=== PATIENT | female | born 1950 | race Caucasian/White ===

== ENCOUNTER 2020-05-08 09:04 | Inpatient (IN) | payer MEDICAID, OTHER ==
[~2020-05-08] VITALS: Ht 154.9 cm; Wt 70.0 kg
[2020-05-08] MEDS ORDERED: aspirin 81mg tab.chew PO ONE (09:10)
[2020-05-08 09:28] LABS: BASOPHILS % (AUTO) 0.2 % (0-1); EOSINOPHILS # (AUTO) 0.1 X10'3 (0-0.9); EOSINOPHILS % (AUTO) 0.5 % (0-6); HEMATOCRIT 48.8 % (35.0-45.0); HEMOGLOBIN 16.8 g/dl (12.0-16.0); LYMPHOCYTES # (AUTO) 2.4 X10'3 (1.1-4.8); LYMPHOCYTES % (AUTO) 22.8 % (21-51); MEAN CORPUSCULAR HEMOGLOBIN 29.8 PG (27.0-31.0); MEAN CORPUSCULAR HGB CONC 34.3 g/dL (33.0-36.5); MEAN CORPUSCULAR VOLUME 86.6 FL (78-98); MONOCYTES # (AUTO) 0.9 X10'3 (0-0.9); MONOCYTES % (AUTO) 8.4 % (2-12); NEUTROPHILS # (AUTO) 7.1 X10'3 (1.8-7.7); NEUTROPHILS % (AUTO) 68.1 % (42-75); PLATELET COUNT 294 X10'3 (140-440); RED BLOOD COUNT 5.63 X10'6 (4.20-5.60); RED CELL DISTRIBUTION WIDTH 14.6 % (11.5-14.5); WHITE BLOOD COUNT 10.4 X10'3 (4.5-11.0)
[2020-05-08 09:38] LABS: PARTIAL THROMBOPLASTIN TIME 26 SECONDS (22-32)
[2020-05-08 09:47] LABS: ALANINE AMINOTRANSFERASE 23 U/L (12-78); ALBUMIN 3.7 G/DL (3.4-5.0); ALBUMIN/GLOBULIN RATIO 0.9 (1.1-1.5); ALKALINE PHOSPHATASE 71 IU/L (46-116); ANION GAP 9 (8-16); ASPARTATE AMINO TRANSFERASE 21 U/L (10-37); BILIRUBIN,TOTAL 0.9 MG/DL (0.1-1.0); BLOOD UREA NITROGEN 43 MG/DL (7-18); BUN/CREATININE RATIO 35.5 (6.6-38.0); CALCIUM 8.7 MG/DL (8.5-10.1); CHLORIDE 90 MMOL/L (99-107); CREATININE 1.21 MG/DL (0.40-0.90); GLUCOSE 135 MG/DL (70-104); MAGNESIUM 2.6 MG/DL (1.5-2.4); SODIUM 130 MMOL/L (135-145); TOTAL CARBON DIOXIDE 31.5 MMOL/L (24-32); TOTAL PROTEIN 7.8 G/DL (6.4-8.2); eGFR 44 ML/MIN
[2020-05-08 09:50] LABS: POTASSIUM 2.6 MMOL/L (3.5-5.1)
--- NOTE | 2020-05-08 09:50 | NUR ---
Pt with pt's relative, Ivy Whitney. She states that the pt has been vomiting for 4 days and this morning started complaining of chest pain. Pt not able to tell her when the chest pain started. Ivy states that the pt has not been to a doctor since the 1960s.
[2020-05-08] MEDS ORDERED: potassium Cl 20 mEq SR tablet PO ONE (09:55)
[2020-05-08] MEDS ORDERED: ondansetron/PF 4mg/2ml inj IV ONE (09:55)
[2020-05-08] MEDS: potassium Cl 10 mEq/100mL bag IV SCH ×2 (10:19→11:32)
--- NOTE | 2020-05-08 10:19 | NUR ---
Pt wants to wait on oral potassium until her nausea is a little better.
[2020-05-08] MEDS ORDERED: normal saline 1000ML IV soln IVB ONE (10:30)
[2020-05-08] MEDS ORDERED: POTASSIUM BICARB 20meq eff tab 20 MEQ TABLET.EFF PO ONE (10:40)
[2020-05-08 11:28] LABS: CLARITY,URINE SLIGHTLY CLOUDY (Clear); COLOR,URINE YELLOW (Yellow); GLUCOSE, URINE NEGATIVE (Neg); KETONES,URINE 15 mg/dl (Neg); LEUKOCYTE ESTERASE ,URINE NEGATIVE (Neg); NITRITES, URINE NEGATIVE (Neg); OCCULT BLOOD,URINE MODERATE (Neg); PH,URINE 6.5 (4.8-8.0); PROTEIN,URINE NEGATIVE (Neg)
[2020-05-08 11:29] LABS: UA COLLECTION TYPE OTHER
[2020-05-08 11:35] LABS: BACTERIA,URINE 1+ /HPF (Neg); MUCUS STRANDS NONE SEEN /LPF (Neg); RENAL CELLS, URINE FEW /HPF; SQUAMOUS EPITHELIAL CELL,UR FEW /LPF (FEW); WBC,URINE 0-4 /HPF (0-4)
[2020-05-08 11:43] LABS: URINE AMPHETAMINE SCREEN NEGATIVE (Neg); URINE BARBITUATE SCREEN NEGATIVE (Neg); URINE BENZODIAZEPINES SCREEN NEGATIVE (Neg); URINE CANNABINOID SCREEN POSITIVE (Neg); URINE COCAINE SCREEN NEGATIVE (Neg); URINE METHADONE SCREEN NEGATIVE (Neg); URINE OPIATE SCREEN NEGATIVE (Neg); URINE PHENCYCLIDINE SCREEN NEGATIVE (Neg)
[2020-05-08] MEDS ORDERED: NO HOME MEDS (12:36)
--- NOTE | 2020-05-08 14:01 | NUR ---
Patient just arrived from ER, alert and oriented x 3. Patient oriented to the unit, instructed her to use call light if she need to go to the bathroom as she was little wobbly after I assisted her to the bathroom. Patient verbalized understanding of instruction made.
[2020-05-08 14:13] VITALS: BP 123/86
--- NOTE | 2020-05-08 14:16 | NUR ---
Paged Dr. Stark regarding K of 2.6 that so far patient received KCL 10 mEQ IV x 2 doses and KCL 40 mEQ PO x 1 dose at Emergency department. I asked him via page if he wants this patient to be on replacement protocol
--- NOTE | 2020-05-08 14:32 | NUR ---
Patient has valuables sent to safe
[2020-05-08] MEDS ORDERED: magnesium 4gm in 100ml NS 100 ML IV PRN (15:50)
[2020-05-08] MEDS ORDERED: potassium CL 10mEq/100ml bag 100 ML IV PRN (15:50)
[2020-05-08] MEDS ORDERED: potassium Cl 20 mEq SR tablet PO PRN (15:50)
[2020-05-08] MEDS ORDERED: magnesium Cl slow-release 64mg tablet PO PRN (15:50)
[2020-05-08 17:10] LABS: POTASSIUM 2.8 MMOL/L (3.5-5.1)
--- NOTE | 2020-05-08 17:11 | NUR ---
Received a phone call from the lab that repeat K is 2.8, will replace per protocol. Dr. Stark notified via paging system
[2020-05-08] MEDS ORDERED: HYDROcodone/acetaminophen 10/325mg tab PO PRN (17:15)
[2020-05-08] MEDS ORDERED: ondansetron/PF 4mg/2ml inj IV PRN (17:15)
[2020-05-08] MEDS ORDERED: diphenhydrAMINE 25mg capsule PO PRN (17:15)
[2020-05-08] MEDS ORDERED: bisacodyl 10mg suppository rectal RC PRN (17:15)
[2020-05-08] MEDS ORDERED: pantoprazole 40 MG vial IV ONE (17:15)
[2020-05-08] MEDS ORDERED: magnesium hydroxide 30ml (MOM) UD suspension PO PRN (17:15)
[2020-05-08] MEDS ORDERED: morphine 2 MG/ML inj. syringe IV PRN ×2 (17:15)
[2020-05-08] MEDS ORDERED: diphenhydrAMINE 50 mg/ml inj IV PRN (17:15)
[2020-05-08] MEDS ORDERED: acetaminophen 650mg rectal suppository RC PRN (17:15)
[2020-05-08] MEDS ORDERED: metoclopramide 5 mg/ml inj IV PRN (17:15)
[2020-05-08] MEDS ORDERED: acetaminophen 325mg tablet PO PRN ×2 (17:15)
[2020-05-08] MEDS ORDERED: HYDROcodone/acetaminophen 5mg/325mg tablet PO PRN (17:15)
[2020-05-08] MEDS ORDERED: mag hydrox/Alum hydrox/simeth 30ml oral suspension PO PRN (17:15)
[2020-05-08] MEDS: potassium Cl 20 mEq SR tablet PO PRN ×2 (17:17→22:59)
[2020-05-08] MEDS: normal saline 1000ml 1,000 ML IV SCH (17:37)
[2020-05-08 18:00] VITALS: BP 103/80
--- NOTE | 2020-05-08 18:53 | NUR ---
Problems reprioritized. Patient report given, questions answered & plan of care reviewed with Prudence RN.
[2020-05-08 19:45] LABS: HEMOGLOBIN A1C 5.8 % (4.5-6.2)
[2020-05-08 20:00] VITALS: BP_SYST 103; BP_SYST 124; BP_SYST 133; BP_DIAS 74; BP_DIAS 80; BP_DIAS 81
[2020-05-08] MEDS: heparin, porcine 5000 units/ml vial SQ SCH (20:02)
[2020-05-09] VITALS: BP 138/75
[2020-05-09] MEDS: potassium Cl 20 mEq SR tablet PO PRN (04:21)
[2020-05-09] MEDS: normal saline 1000ml 1,000 ML IV SCH ×3 (04:27→23:00)
[2020-05-09 05:17] LABS: BASOPHILS % (AUTO) 0.1 % (0-1); EOSINOPHILS # (AUTO) 0.2 X10'3 (0-0.9); EOSINOPHILS % (AUTO) 1.8 % (0-6); HEMATOCRIT 43.5 % (35.0-45.0); HEMOGLOBIN 14.7 g/dl (12.0-16.0); LYMPHOCYTES % (AUTO) 33.9 % (21-51); MEAN CORPUSCULAR HEMOGLOBIN 29.7 PG (27.0-31.0); MEAN CORPUSCULAR HGB CONC 33.8 g/dL (33.0-36.5); MONOCYTES # (AUTO) 0.7 X10'3 (0-0.9); MONOCYTES % (AUTO) 7.6 % (2-12); NEUTROPHILS % (AUTO) 56.6 % (42-75); PLATELET COUNT 230 X10'3 (140-440); RED BLOOD COUNT 4.94 X10'6 (4.20-5.60); RED CELL DISTRIBUTION WIDTH 14.6 % (11.5-14.5); WHITE BLOOD COUNT 8.8 X10'3 (4.5-11.0)
[2020-05-09 05:33] LABS: ALANINE AMINOTRANSFERASE 23 U/L (12-78); ALBUMIN 3.1 G/DL (3.4-5.0); ALBUMIN/GLOBULIN RATIO 0.9 (1.1-1.5); ALKALINE PHOSPHATASE 59 IU/L (46-116); ANION GAP 8 (8-16); ASPARTATE AMINO TRANSFERASE 23 U/L (10-37); BILIRUBIN,TOTAL 0.6 MG/DL (0.1-1.0); BLOOD UREA NITROGEN 26 MG/DL (7-18); CALCIUM 7.7 MG/DL (8.5-10.1); CHLORIDE 100 MMOL/L (99-107); CHOL/HDL RATIO 3.7 (0.00-4.99); CHOLESTEROL 154 MG/DL (0-200); CREATININE 0.93 MG/DL (0.40-0.90); GLUCOSE 97 MG/DL (70-104); HDL CHOLESTEROL 42 MG/DL (35-60); LDL CHOLESTEROL 90 MG/DL (50-100); MAGNESIUM 2.4 MG/DL (1.5-2.4); PHOSPHORUS 2.3 MG/DL (2.3-4.5); POTASSIUM 3.6 MMOL/L (3.5-5.1); SODIUM 136 MMOL/L (135-145); TOTAL CARBON DIOXIDE 28.5 MMOL/L (24-32); TOTAL PROTEIN 6.5 G/DL (6.4-8.2); TRIGLYCERIDES 114 MG/DL (20-135); eGFR 59 ML/MIN
--- NOTE | 2020-05-09 05:59 | NUR ---
Problems reprioritized. Patient report given, questions answered & plan of care reviewed with Heidi BURTON.
--- NOTE | 2020-05-09 06:05 | NUR ---
Patient in room [facility]. I have received report from Danisha BURTON and had the opportunity to ask questions and assume patient care.
[2020-05-09 07:00] VITALS: BP 101/58
[2020-05-09 08:00] VITALS: BP 156/85
[2020-05-09] MEDS: pantoprazole 40 MG vial IV SCH (08:27)
[2020-05-09] MEDS: heparin, porcine 5000 units/ml vial SQ SCH ×2 (08:28→20:08)
[2020-05-09] MEDS ORDERED: metoprolol tartrate 1mg/ml inj IV PRN (10:20)
[2020-05-09] MEDS ORDERED: aminophylline 250mg/10ml inj. IV PRN (10:20)
[2020-05-09] MEDS ORDERED: nitroGLYCERIN 0.4mg SUBLingual tab SL PRN (10:20)
[2020-05-09] MEDS ORDERED: regadenoson 0.4mg/5ml syringe IV PRN (10:20)
--- NOTE | 2020-05-09 10:48 | NUR ---
Patient already ate breakfast around 08:30am and had 2 sips of coffee with creamer. Nuclear Med department notified about this, the staff said we cannot done it today but tomorrow am instead. Instructed patient about NPO after midnight, no caffeine to prepare for Lexiscan stress test
[2020-05-09 18:00] VITALS: BP 162/88
--- NOTE | 2020-05-09 18:39 | NUR ---
Problems reprioritized. Patient report given, questions answered & plan of care reviewed with Prudence RN.
--- NOTE | 2020-05-09 19:00 | NUR ---
Patient in room [facility]. I have received report from TRACEE BURTON and had the opportunity to ask questions and assume patient care.
[2020-05-09 20:00] VITALS: BP 162/88
--- NOTE | 2020-05-09 21:53 | NUR ---
PATIENT REFUSED ORTHOSTATICS FOR STANDING Addendum: 05/09/20 at 2155 by Danisha Hartman RN Amended: Links added.
[2020-05-10] VITALS (12 sets, daily range): BP systolic 74–196; BP diastolic 78–121
[2020-05-10 05:23] LABS: BASOPHILS % (AUTO) 0.1 % (0-1); EOSINOPHILS # (AUTO) 0.2 X10'3 (0-0.9); EOSINOPHILS % (AUTO) 2.3 % (0-6); HEMATOCRIT 41.5 % (35.0-45.0); LYMPHOCYTES # (AUTO) 2.5 X10'3 (1.1-4.8); LYMPHOCYTES % (AUTO) 35.6 % (21-51); MEAN CORPUSCULAR HEMOGLOBIN 29.6 PG (27.0-31.0); MEAN CORPUSCULAR HGB CONC 33.7 g/dL (33.0-36.5); MEAN CORPUSCULAR VOLUME 87.9 FL (78-98); MONOCYTES # (AUTO) 0.5 X10'3 (0-0.9); MONOCYTES % (AUTO) 7.9 % (2-12); NEUTROPHILS # (AUTO) 3.7 X10'3 (1.8-7.7); NEUTROPHILS % (AUTO) 54.1 % (42-75); PLATELET COUNT 245 X10'3 (140-440); RED BLOOD COUNT 4.73 X10'6 (4.20-5.60); RED CELL DISTRIBUTION WIDTH 15.1 % (11.5-14.5); WHITE BLOOD COUNT 6.9 X10'3 (4.5-11.0)
[2020-05-10 05:40] LABS: ALANINE AMINOTRANSFERASE 26 U/L (12-78); ALBUMIN/GLOBULIN RATIO 0.9 (1.1-1.5); ALKALINE PHOSPHATASE 56 IU/L (46-116); ANION GAP 7 (8-16); ASPARTATE AMINO TRANSFERASE 21 U/L (10-37); BILIRUBIN,TOTAL 0.4 MG/DL (0.1-1.0); BLOOD UREA NITROGEN 15 MG/DL (7-18); BUN/CREATININE RATIO 19.2 (6.6-38.0); CALCIUM 7.7 MG/DL (8.5-10.1); CHLORIDE 102 MMOL/L (99-107); CREATININE 0.78 MG/DL (0.40-0.90); GLUCOSE 95 MG/DL (70-104); POTASSIUM 3.6 MMOL/L (3.5-5.1); SODIUM 136 MMOL/L (135-145); TOTAL CARBON DIOXIDE 27.1 MMOL/L (24-32); TOTAL PROTEIN 6.4 G/DL (6.4-8.2); eGFR 73 ML/MIN
--- NOTE | 2020-05-10 06:30 | NUR ---
Patient in room [facility]. I have received report from Danisha BURTON and had the opportunity to ask questions and assume patient care.
[2020-05-10] MEDS: pantoprazole 40 MG vial IV SCH (07:38)
[2020-05-10] MEDS: heparin, porcine 5000 units/ml vial SQ SCH (07:38)
[2020-05-10] MEDS ORDERED: amLODIPine 5mg tablet PO SCH (12:55)
[2020-05-10] MEDS ORDERED: PANT40TA4 PO (13:33)
[2020-05-10] MEDS ORDERED: NOR5T PO (13:33)
--- NOTE | 2020-05-10 16:10 | NUR ---
PATIENT DISCHARGED INTO THE CARE OF FAMILY. PATIENT EXPRESSED VERBAL UNDERSTANDING OF DISCHARGE TEACHING AND MEDICATION TEACHING. PATIENT IS STATED SHE HAD ALL OF HER BELONGINGS AT THE TIME OF DISCHARGE. IV TAKEN OUT AT THE TIME OF DISCHARGE, CANULA WAS WHOLE AND INTACT UPON DISCHARGE. PATIENT LEFT IN PRIVATE VEHICLE AND IS LOOKING FOR PCP AT THIS TIME.
== END 2020-05-10 16:17 | disposition home or self-care (01) | DRG 241 ==
LOC: ER 09:05 → UNDOADMIN 11:43 → ED HOLD 11:43 → SUR 3N 14:04 → ED HOLD 17:12
PROVIDERS: ADMIT Family Medicine; ATTEND Family Medicine
PROC: 4A02XM4 Measurement of Cardiac Total Activity, External Approach (ICD-10-PCS; principal; 2020-05-10)
PROC: 3E073KZ Introduction of Other Diagnostic Substance into Coronary Artery, Percutaneous Approach (ICD-10-PCS; 2020-05-10)
DX: K29.20 Alcoholic gastritis without bleeding (principal); R11.15 Cyclical vomiting syndrome unrelated to migraine; N17.9 Acute kidney failure, unspecified; E86.0 Dehydration; E86.1 Hypovolemia; E87.1 Hypo-osmolality and hyponatremia; E87.6 Hypokalemia; F10.10 Alcohol abuse, uncomplicated; F12.10 Cannabis abuse, uncomplicated; G93.41 Metabolic encephalopathy; I10 Essential (primary) hypertension; K21.9 Gastro-esophageal reflux disease without esophagitis; Z82.0 Family history of epilepsy and other diseases of the nervous system; Z82.3 Family history of stroke; Z71.51 Drug abuse counseling and surveillance of drug abuser; Y92.89 Other specified places as the place of occurrence of the external cause
CPT/HCPCS: 36415; 70450; 71045; 78452; 80053; 80061; 80305; 81001; 83036; 83735; 83880; 84100; 84132; 84484; 85025; 85610; 85730; 87081; 93005; 93017; 93306; 97110; 97116; 97161; 97530; 99285; A9500; C9113; G0378; J1644; J2405; J2785; J3480; J7030

== ENCOUNTER 2020-08-08 13:52 | Emergency (ER) | payer MEDICAID, OTHER ==
[~2020-08-08] VITALS: Ht 154.9 cm; Wt 73.2 kg
[~2020-08-08 13:52] MED LIST: NOR5T PO; PANT40TA54 PO
[2020-08-08] MEDS ORDERED: ondansetron 4mg rapidly disintigrating tab PO ONE (14:15)
--- NOTE | 2020-08-08 14:18 | NUR ---
Spoke to Dr Edwin koch about patient's condition/vital signs. He ordered Zofran so hopefully she will be able to keep something down. No rooms available at this time. RN advised ARCHANA Robbins of situation. Patient sitting in lobby.
[2020-08-08 15:38] LABS: BASOPHILS # (AUTO) 0.1 X10'3 (0-0.2); BASOPHILS % (AUTO) 0.3 % (0-1); EOSINOPHILS % (AUTO) 0 % (0-6); HEMATOCRIT 46.2 % (35.0-45.0); LYMPHOCYTES # (AUTO) 1.8 X10'3 (1.1-4.8); LYMPHOCYTES % (AUTO) 8.8 % (21-51); MEAN CORPUSCULAR HEMOGLOBIN 30.2 PG (27.0-31.0); MEAN CORPUSCULAR HGB CONC 34.6 g/dL (33.0-36.5); MEAN CORPUSCULAR VOLUME 87.3 FL (78-98); MEAN PLATELET VOLUME 7.5 FL (7.4-10.4); MONOCYTES % (AUTO) 5.2 % (2-12); NEUTROPHILS # (AUTO) 17.2 X10'3 (1.8-7.7); NEUTROPHILS % (AUTO) 85.7 % (42-75); PLATELET COUNT 331 X10'3 (140-440); RED CELL DISTRIBUTION WIDTH 15.2 % (11.5-14.5); WHITE BLOOD COUNT 20.1 X10'3 (4.5-11.0)
[2020-08-08] MEDS ORDERED: normal saline 1000ML IV soln IVB ONE ×3 (15:45→18:35)
[2020-08-08] MEDS ORDERED: ondansetron/PF 4mg/2ml inj IV ONE (15:45)
[2020-08-08 15:52] LABS: ALANINE AMINOTRANSFERASE 25 U/L (12-78); ALBUMIN 4.6 G/DL (3.4-5.0); ALKALINE PHOSPHATASE 93 IU/L (46-116); ANION GAP 12 (8-16); ASPARTATE AMINO TRANSFERASE 21 U/L (10-37); BILIRUBIN,TOTAL 0.6 MG/DL (0.1-1.0); BLOOD UREA NITROGEN 49 MG/DL (7-18); BUN/CREATININE RATIO 27.1 (6.6-38.0); CHLORIDE 98 MMOL/L (99-107); CREATININE 1.81 MG/DL (0.40-0.90); GLUCOSE 168 MG/DL (70-104); LIPASE < 50 U/L (73-393); POTASSIUM 3.2 MMOL/L (3.5-5.1); SODIUM 139 MMOL/L (135-145); TOTAL CARBON DIOXIDE 28.7 MMOL/L (24-32); TOTAL PROTEIN 9.3 G/DL (6.4-8.2); eGFR 27 ML/MIN
--- NOTE | 2020-08-08 16:00 | NUR ---
discussed pt's bp w/ pa good; new order for hydralazine received.
[2020-08-08] MEDS ORDERED: hydrALAZINE 20mg/ml inj. IV ONE (16:05)
[2020-08-08 16:13] LABS: MAGNESIUM 2.4 MG/DL (1.5-2.4)
[2020-08-08 16:33] LABS: CLARITY,URINE SLIGHTLY CLOUDY (Clear); COLOR,URINE YELLOW (Yellow); GLUCOSE, URINE NEGATIVE (Neg); KETONES,URINE NEGATIVE (Neg); LEUKOCYTE ESTERASE ,URINE NEGATIVE (Neg); NITRITES, URINE NEGATIVE (Neg); OCCULT BLOOD,URINE MODERATE (Neg); PH,URINE 5.5 (4.8-8.0); PROTEIN,URINE 100 mg/dl (Neg); UROBILINOGEN,URINE 0.2 E.U/dL (0.2-1.0)
[2020-08-08 16:49] LABS: BACTERIA,URINE FEW /HPF (Neg); MUCUS STRANDS FEW /LPF (Neg); RBC,URINE 0-2 /HPF (0-2); SQUAMOUS EPITHELIAL CELL,UR NONE SEEN /LPF (FEW); UA COLLECTION TYPE STRAIGHT CATH; WBC,URINE 0-4 /HPF (0-4)
[2020-08-08 16:50] LABS: AMORPHOUS URATES 2+; COARSE GRANULAR CAST 0-3 /LPF (NEGATIVE)
[2020-08-08] MEDS ORDERED: mag hydrox/Alum hydrox/simeth 30ml oral suspension PO ONE (17:00)
[2020-08-08] MEDS ORDERED: proCHLORperazine 10 MG/2 ml inj IM ONE (17:00)
[2020-08-08] MEDS ORDERED: magnesium citrate 296ml oral solution PO ONE (17:00)
[2020-08-08] MEDS ORDERED: LIDOcaine Viscous 15ml cup MM ONE (17:00)
[2020-08-08 18:41] LABS: URINE AMPHETAMINE SCREEN NEGATIVE (Neg); URINE BARBITUATE SCREEN NEGATIVE (Neg); URINE BENZODIAZEPINES SCREEN NEGATIVE (Neg); URINE CANNABINOID SCREEN POSITIVE (Neg); URINE COCAINE SCREEN NEGATIVE (Neg); URINE METHADONE SCREEN NEGATIVE (Neg); URINE OPIATE SCREEN NEGATIVE (Neg); URINE PHENCYCLIDINE SCREEN NEGATIVE (Neg)
[2020-08-08] MEDS ORDERED: acetaminophen 325mg tablet PO ONE (19:35)
[2020-08-08] MEDS ORDERED: ONDA4TAB6 PO (20:20)
[2020-08-08 21:01] VITALS: BP 190/103
== END 2020-08-08 21:03 | disposition home or self-care (01) ==
LOC: ER 13:53
DX: K29.00 Acute gastritis without bleeding (principal); I10 Essential (primary) hypertension; F12.10 Cannabis abuse, uncomplicated; Z79.899 Other long term (current) drug therapy
CPT/HCPCS: 36415; 74022; 80053; 80305; 81001; 83605; 83690; 83735; 84145; 84484; 85025; 93005; 96361; 96372; 96374; 96375; 99285; J0360; J0780; J2405; J7030

== ENCOUNTER 2021-04-15 09:02 | Day surgery (SDC) | payer SELFPAY ==
[2021-04-09 14:23] LABS: BASOPHILS % (AUTO) 0.3 % (0-1); EOSINOPHILS # (AUTO) 0.1 X10'3 (0-0.9); EOSINOPHILS % (AUTO) 0.8 % (0-6); LYMPHOCYTES # (AUTO) 1.9 X10'3 (1.1-4.8); LYMPHOCYTES % (AUTO) 22.9 % (21-51); MEAN CORPUSCULAR HEMOGLOBIN 29.1 PG (27.0-31.0); MEAN CORPUSCULAR HGB CONC 34.5 g/dL (33.0-36.5); MEAN CORPUSCULAR VOLUME 84.4 FL (78-98); MONOCYTES # (AUTO) 0.7 X10'3 (0-0.9); MONOCYTES % (AUTO) 7.9 % (2-12); NEUTROPHILS # (AUTO) 5.7 X10'3 (1.8-7.7); NEUTROPHILS % (AUTO) 68.1 % (42-75); PRE OP HEMATOCRIT 31.1 % (35.0-45.0); PRE OP PLATELET COUNT 280 X10'3 (140-440); RED BLOOD COUNT 3.69 X10'6 (4.20-5.60); RED CELL DISTRIBUTION WIDTH 15.1 % (11.5-14.5)
[2021-04-09 14:27] LABS: PRE OP HEMOGLOBIN 10.7 g/dL (12.0-16.0)
[2021-04-09 14:38] LABS: ALBUMIN 3.6 G/DL (3.4-5.0); ALBUMIN/GLOBULIN RATIO 0.8 (1.1-1.5); ALKALINE PHOSPHATASE 67 IU/L (46-116); BLOOD UREA NITROGEN 26 MG/DL (7-18); BUN/CREATININE RATIO 15.3 (6.6-38.0); CALCIUM 8.7 MG/DL (8.5-10.1); CHLORIDE 102 MMOL/L (99-107); PRE OP ALT 16 U/L (30-65); PRE OP ANION GAP 13 (8-16); PRE OP AST 17 U/L (10-37); PRE OP BILIRUB, TOTAL 0.4 MG/DL (0.0-1.0); PRE OP GLUCOSE 105 MG/DL (70-104); PRE OP POTASSIUM 3.5 MMOL/L (3.4-5.1); PRE OP SODIUM 141 MMOL/L (135-145); TOTAL CARBON DIOXIDE 25.9 MMOL/L (24-32); TOTAL PROTEIN 8.1 G/DL (6.4-8.2); eGFR 29 ML/MIN
[~2021-04-15] VITALS: Ht 154.9 cm; Wt 60.6 kg
[2021-04-15] VITALS (7 sets, daily range): BP systolic 136–180; BP diastolic 79–100
[~2021-04-15 09:02] MED LIST changes: +METO-384 PO; +OMEP40CA21 PO; -PANT40TA54 PO; +famotidine 20mg tablet PO ONE; +ringers solution, lacted 1,000 ML IV SCH
[2021-04-15] MEDS ORDERED: BUPIVAcaine/PF 2.5 mg/ml (0.25%) 30ml vial ONE (10:15)
[2021-04-15 10:26] LABS: CLARITY,URINE SLIGHTLY CLOUDY (Clear); COLOR,URINE STRAW (Yellow); GLUCOSE, URINE NEGATIVE (Neg); KETONES,URINE NEGATIVE (Neg); LEUKOCYTE ESTERASE ,URINE NEGATIVE (Neg); NITRITES, URINE NEGATIVE (Neg); OCCULT BLOOD,URINE TRACE-INTACT (Neg); PH,URINE 6.5 (4.8-8.0); PROTEIN,URINE NEGATIVE (Neg); UROBILINOGEN,URINE 0.2 E.U/dL (0.2-1.0)
[2021-04-15 10:30] LABS: MUCUS STRANDS FEW /LPF (Neg); SQUAMOUS EPITHELIAL CELL,UR MANY /LPF (FEW)
[2021-04-15 10:31] LABS: TRANSITIONAL EPI CELLS,URINE FEW /HPF
[2021-04-15 10:32] LABS: WBC,URINE 0-4 /HPF (0-4)
[2021-04-15 10:33] LABS: BACTERIA,URINE 1+ /HPF (Neg)
[2021-04-15 10:35] LABS: PRE OP INR 1.1 INR; PRE OP PROTIME 10.9 SECONDS (9.0-12.0)
[2021-04-15 10:55] LABS: UA COLLECTION TYPE VOIDED
[2021-04-15] MEDS ORDERED: fentaNYL/PF 50MCG/1 ML 2ML syringe ONE (11:19)
[2021-04-15] MEDS ORDERED: propofol inj 20 ML IV ONE (11:19)
[2021-04-15] MEDS ORDERED: midazolam 1 mg/ML 2ml injection ONE (11:19)
[2021-04-15] MEDS ORDERED: dexamethasone sod phosphate 4mg/ml inj. ONE (11:19)
[2021-04-15] MEDS ORDERED: sevoflurane 250ml liquid IH ONE (11:21)
[2021-04-15] MEDS ORDERED: ceFAZolin 1000mg inj ONE ×2 (11:32)
[2021-04-15] MEDS ORDERED: ondansetron/PF 4mg/2ml inj ONE (11:37)
[2021-04-15] MEDS ORDERED: morphine 4 MG/ML inj SYRINge IV PRN (12:00)
[2021-04-15] MEDS ORDERED: ondansetron/PF 4mg/2ml inj IV PRN (12:00)
[2021-04-15] MEDS ORDERED: morphine 2 MG/ML inj. syringe IV PRN (12:00)
[2021-04-15] MEDS ORDERED: proCHLORperazine 10 MG/2 ml inj IV PRN (12:00)
[2021-04-15] MEDS ORDERED: ringers solution, lacted 1,000 ML IV SCH (12:00)
[2021-04-15] MEDS ORDERED: meperidine/PF 25mg/ml syringe IV PRN ×3 (12:00)
--- NOTE | 2021-04-15 12:07 | NUR ---
Received from OR via [facility] IN STABLE CONDITION , accompanied by Anesthesiologist and OWNER CONSULTING ENGINEER report given by Luma. Addendum: 04/15/21 at 1243 by Maritza Gtz RN Amended: Links added.
--- NOTE | 2021-04-15 13:17 | NUR ---
PATIENT DISCHARGED FROM PACU IN [facility] CONDTION AFTER WRITTEN AND VERBAL DISCHARGE INSTRUCTIONS GIVEN. PATIENT GAVE VERBAL UNDERSTANDING OF INSRUCTIONS GIVEN. PATIENT LEFT FACILITY VIA WHEELCHAIR WITH RN. Addendum: 04/15/21 at 1328 by Maritza Gtz RN Amended: Links added.
== END 2021-04-15 13:17 | disposition home or self-care (01) ==
LOC: PAS 09:02
PROVIDERS: ATTEND Surgery
DX: R59.0 Localized enlarged lymph nodes (principal); C83.35 Diffuse large B-cell lymphoma, lymph nodes of inguinal region and lower limb; I12.9 Hypertensive chronic kidney disease with stage 1 through stage 4 chronic kidney disease, or unspecified chronic kidney disease; N18.30 Chronic kidney disease, stage 3 unspecified; M19.90 Unspecified osteoarthritis, unspecified site; Z79.01 Long term (current) use of anticoagulants; Z79.899 Other long term (current) drug therapy; Z85.828 Personal history of other malignant neoplasm of skin; Z82.3 Family history of stroke; Z82.49 Family history of ischemic heart disease and other diseases of the circulatory system; Z81.8 Family history of other mental and behavioral disorders
CPT/HCPCS: 36415; 38531; 80053; 81001; 82948; 85025; 85610; 85730; 93005; J0690; J1100; J2250; J2405; J2704; J3010; J3490; J7120; A4215; A4618; A6258; A7000

== ENCOUNTER 2022-03-22 08:40 | Day surgery (SDC) | payer MEDICAID ==
[~2022-03-22] VITALS: Ht 154.9 cm; Wt 58.1 kg
[~2022-03-22 08:40] MED LIST changes: -famotidine 20mg tablet PO ONE; -ringers solution, lacted 1,000 ML IV SCH
[2022-03-22] MEDS ORDERED: AMLO10TA PO (09:34)
[2022-03-22] MEDS ORDERED: Melatonin (09:35)
[2022-03-22] MEDS ORDERED: MULT-1085 PO (09:35)
[2022-03-22 09:58] VITALS: BP 144/78
[2022-03-22] MEDS ORDERED: LIDOcaine 1%/PF 5ML 10 MG/ML VIAL ONE (11:00)
[2022-03-22 11:30] VITALS: BP 144/78
== END 2022-03-22 11:40 | disposition home or self-care (01) ==
LOC: SSTAY O 08:40
PROVIDERS: ATTEND Radiology Diagnostic Radiology
DX: Z45.2 Encounter for adjustment and management of vascular access device (principal); C83.33 Diffuse large B-cell lymphoma, intra-abdominal lymph nodes; I10 Essential (primary) hypertension; Z79.899 Other long term (current) drug therapy; Z82.3 Family history of stroke; Z81.8 Family history of other mental and behavioral disorders; Z82.49 Family history of ischemic heart disease and other diseases of the circulatory system
CPT/HCPCS: 36590; J3490; J7030; 36589